=== PATIENT | female | born 1995 | race Caucasian/White ===

== ENCOUNTER 2017-06-08 08:17 | Emergency (ER) | payer BC ==
[~2017-06-08] VITALS: Ht 167.6 cm; Wt 50.7 kg
[~2017-06-08 08:17] MED LIST: BCPILLS PO; LORA-741 PO; PROP20TA67 PO; SPIR50TA2 PO
[2017-06-08 08:20] VITALS: TEMP 36.9; Ht 167.6 cm; Wt 50.7 kg
[2017-06-08] MEDS ORDERED: CEFTRIAXONE SOD INJ 1 GM ADDVIAL IV STA (08:43)
[2017-06-08] MEDS ORDERED: ETON1IMP2 (08:59)
[2017-06-08 09:03] LABS: BASO % 0.5 %; BASO ABS # 0.03 K/uL (0-0.2); COMPLETE YES; EOS % 1.8 %; HEMATOCRIT 40.1 % (37-47); IG% 0.2 %; LYMPH % 43.2 %; MEAN CELL VOLUME 89.5 fL (80-100); MEAN CORPUSCULAR HEMOGLOBIN 30.4 pg (25-34); MEAN CORPUSCULAR HGB CONC 33.9 g/dl (32-36); MEAN PLATELET VOLUME 9.5 fL (7.4-10.4); NEUT % 47.3 %; PLATELET COUNT 209 K/uL (130-400); RED BLOOD COUNT 4.48 M/uL (4.2-5.4); WHITE BLOOD COUNT 6.25 K/uL (4.8-10.8)
[2017-06-08 09:20] LABS: BUN/CREATININE RATIO 14.3 (10-20); CALCIUM 9.1 mg/dl (8.5-10.1); CREATININE 0.77 mg/dl (0.60-1.20); POTASSIUM 3.6 mmol/L (3.5-5.1)
[2017-06-08] MEDS ORDERED: CEPH500C PO (10:01)
[2017-06-08 10:17] VITALS: BP 115/73; PULSE 86; O2SAT 97
--- NOTE | 2017-06-08 16:08 | EMERGENCY ROOM VISIT NOTE ---
History First contact with patient: 08:34 Chief Complaint: EYE ASSESSMENT Stated Complaint: PUFFY EYE, ALLERGY History of Present Illness The patient is a 21 year old female who presents to the Emergency Room with complaints of aggressively worsening right eyelid swelling and redness. The patient reports that she woke up yesterday morning with mild swelling and minimal redness. She was seen by an eye doctor who performed an eye exam without any identifiable problems. They suggested that this was an allergic reaction, and suggested that she take Benadryl. She was also provided a prescription for hydrocortisone cream. The patient reports that when she awoke this morning, the redness and swelling were worse. She denies any pain, especially with range of motion of the eyes. The patient does not wear contacts. She has had some mild drainage from the eye. She denies any blurred vision, but now reports that the eye is swollen shut. She has had a recent mild cold with minimal cough and runny nose. She also complains of pressure in the right ear. She currently denies any pain. Review of Systems 10 system review was performed and was negative except for pertinent positives and negatives as indicated in history of present illness Past Medical/Surgical History Medical Problems: (1) Anxiety (2) Panic attacks Family History Diabetes mellitus FHx: cancer Social History Smoking Status: Never Smoker Alcohol Use: occasionally Marital Status: single Housing Status: lives with roommate Current/Historical Medications Scheduled Cephalexin Monohydrate (Keflex), 500 MG PO QID Propranolol (Inderal), 40 MG PO QAM Spironolactone (Aldactone), 50 MG PO DAILY Scheduled PRN Lorazepam (Ativan), 0.5 MG PO BID PRN for Anxiety Miscellaneous Medications Etonogestrel (Nexplanon) Physical Exam Vital Signs Date Time Temp Pulse Resp B/P (MAP) Pulse Ox O2 Delivery O2 Flow Rate FiO2 06/08/17 10:17 86 17 115/73 97 Room Air 06/08/17 08:20 36.9 71 18 113/70 99 Room Air Physical Exam CONSTITUTIONAL: Healthy and well nourished. Alert and oriented X 3 with positive affect. Patient does not appear in any acute distress. HEENT: Examination shows notable right periorbital erythema and ecchymosis. The patient is unable to open the eye. Pupils equal, round and reactive. EOMs are intact and without evidence of discomfort. Examination of the right eye does not show any significant conjunctival injection or mucopurulent drainage. Examination of the right ear does show mild bulging of the TM without air-fluid levels or erythema. Bony landmarks and light reflex are present. Minimal clear rhinorrhea is noted. LYMPHATICS: No adenopathy noted on exam. NECK: Full active range of motion without discomfort. RESPIRATORY: Clear to auscultation bilaterally with no wheezing, crackles, rhonchi or stridor. CARDIOVASCULAR: Regular rate and rhythm with no murmurs, rubs or gallops. GASTROINTESTINAL: Bowel sounds present in all quadrants. MUSCULOSKELETAL: Full range of motion of all joints without discomfort. INTEGUMENTARY: No rash or other significant dermatologic conditions noted. NEUROLOGIC: No focal neurologic deficits noted. Cranial nerves 2 through 12 grossly intact. Facial sensations are also intact. Medical Decision & Procedures Laboratory Results 06/08/17 08:50 Red Blood Count 4.48, Mean Corpuscular Volume 89.5, Mean Corpuscular Hemoglobin 30.4, Mean Corpuscular Hemoglobin Concent 33.9, Mean Platelet Volume 9.5, Neutrophils (%) (Auto) 47.3, Lymphocytes (%) (Auto) 43.2, Monocytes (%) (Auto) 7.0, Eosinophils (%) (Auto) 1.8, Basophils (%) (Auto) 0.5, Neutrophils # (Auto) 2.96, Lymphocytes # (Auto) 2.70, Monocytes # (Auto) 0.44, Eosinophils # (Auto) 0.11, Basophils # (Auto) 0.03 06/08/17 08:50 Test 06/08/17 08:50 White Blood Count 6.25 K/uL (4.8-10.8) Red Blood Count 4.48 M/uL (4.2-5.4) Hemoglobin 13.6 g/dL (12.0-16.0) Hematocrit 40.1 % (37-47) Mean Corpuscular Volume 89.5 fL (80-100) Mean Corpuscular Hemoglobin 30.4 pg (25-34) Mean Corpuscular Hemoglobin Concent 33.9 g/dl (32-36) Platelet Count 209 K/uL (130-400) Mean Platelet Volume 9.5 fL (7.4-10.4) Neutrophils (%) (Auto) 47.3 % Lymphocytes (%) (Auto) 43.2 % Monocytes (%) (Auto) 7.0 % Eosinophils (%) (Auto) 1.8 % Basophils (%) (Auto) 0.5 % Neutrophils # (Auto) 2.96 K/uL (1.4-6.5) Lymphocytes # (Auto) 2.70 K/uL (1.2-3.4) Monocytes # (Auto) 0.44 K/uL (0.11-0.59) Eosinophils # (Auto) 0.11 K/uL (0-0.5) Basophils # (Auto) 0.03 K/uL (0-0.2) RDW Standard Deviation 43.5 fL (36.4-46.3) RDW Coefficient of Variation 13.4 % (11.5-14.5) Immature Granulocyte % (Auto) 0.2 % Immature Granulocyte # (Auto) 0.01 K/uL (0.00-0.02) Erythrocyte Sedimentation Rate 2 mm/hr (0-21) Anion Gap 8.0 mmol/L (3-11) Est Creatinine Clear Calc Drug Dose 92.5 ml/min Estimated GFR () 127.9 Estimated GFR (Non- 110.4 BUN/Creatinine Ratio 14.3 (10-20) Calcium Level 9.1 mg/dl (8.5-10.1) The above labs were reviewed and were normal. Medications Administered Medications (Trade) Dose Ordered Sig/Sharan Route Start Time Stop Time Status Last Admin Dose Admin Ceftriaxone Sodium (Rocephin Inj) 1 gm NOW STAT IV 06/08/17 08:43 06/08/17 08:45 DC 06/08/17 08:56 1 GM ED Course Patient history and physical exam were performed. Nurse's notes were reviewed. Vital signs were reviewed and were normal. The patient is afebrile. The patient denies any pain, and extraocular movements are intact and without discomfort. The patient therefore does not have physical exam findings to suggest periorbital cellulitis; however, I did suggest checking some lab work and administering some IV antibiotics in case she has a preseptal cellulitis. The patient was in agreement. IV access was established and labs were drawn. The patient was administered Rocephin 1 g IV infusion. Review of labs did not show any acute findings. The case was also discussed with Dr. Watts, ED attending physician, who agrees with workup and outpatient plan of care, having the patient return for any progressively worsening symptoms. The patient was provided a prescription for Keflex. She refused any prescription analgesics. The patient was upset because of the amount of swelling, and reported that she did not feel comfortable going to class. The patient was provided a note off work today, and encouraged to follow-up with [facility] or return to the emergency department as needed for a recheck in 24-48 hours. She was instructed to return sooner with any developing blurred vision, headache , fever, significant worsening swelling, redness or pain with movement of the eye. The patient was happy with plan of care, and voiced understanding of all discharge instructions, denying any discomfort at the time of discharge. Medical Decision Medication Reconcilliation Current Medication List: was personally reviewed by me Blood Pressure Screening Patient's blood pressure: Normal blood pressure Impression Primary Impression: Preseptal cellulitis of right eye Departure Information Prescriptions Cephalexin Monohydrate (Keflex) 500 Mg Cap 500 MG PO QID for 7 Days, #28 CAP Prov: Cal Gipson PA 06/08/17 Referrals No Doctor, Assigned (PCP) Patient Instructions My [facility]
== END 2017-06-08 10:26 | disposition home or self-care (01) ==
LOC: C.EDB 08:19 → C.EDA 10:26
DX: L03.213 Periorbital cellulitis (principal); F41.9 Anxiety disorder, unspecified; Z79.899 Other long term (current) drug therapy; Z83.3 Family history of diabetes mellitus; Z80.9 Family history of malignant neoplasm, unspecified

== ENCOUNTER 2017-06-11 12:58 | Emergency (ER) | payer BC ==
[~2017-06-11] VITALS: Ht 167.6 cm; Wt 50.5 kg
[~2017-06-11 12:58] MED LIST changes: -BCPILLS PO; +CEPH500C PO; +ETON1IMP2
[2017-06-11 13:11] VITALS: TEMP 36.9; Ht 167.6 cm; Wt 50.5 kg
[2017-06-11] MEDS ORDERED: CEFTRIAXONE SOD INJ 1 GM ADDVIAL IV STA (13:28)
--- NOTE | 2017-06-11 13:34 | EMERGENCY ROOM VISIT NOTE ---
History First contact with patient: 13:20 Chief Complaint: WOUND INFECTION Stated Complaint: INFLAMMED L WRIST, SAW AT [place]UST Nursing Triage Summary: c/o left wrist pain and swelling, redness. Started last night. Has some bug bites. track line spreading up the left arm. RUST niesha border on arm today with marker. Seen here on Wednesday for right eye cellulitis. History of Present Illness The patient is a 21 year old female who presents to the Emergency Room with complaints of redness and swelling over her left hand and wrist that started last night. The patient thought that maybe it was an allergic reaction. She was seen 2 days ago in the emergency department for facial swelling. She was diagnosed with preseptal cellulitis. She was put on Keflex, which she has been taken as prescribed. The facial swelling is much improved. She denies any other rash. She has taken Keflex in the past with no reaction. The patient was cutting an apple yesterday afternoon, and accidentally cut her second and third digit. She reports that the knife was clean. She'll show notes some bug bites on her left wrist. Review of Systems 10 system review performed and negative unless noted in HPI or below Past Medical/Surgical History Medical Problems: (1) Anxiety (2) Panic attacks Family History Diabetes mellitus FHx: cancer Social History Smoking Status: Never Smoker Alcohol Use: occasionally Marital Status: single Housing Status: lives with roommate Current/Historical Medications Scheduled Cephalexin Monohydrate (Keflex), 500 MG PO QID Spironolactone (Aldactone), 50 MG PO DAILY Scheduled PRN Lorazepam (Ativan), 0.5 MG PO BID PRN for Anxiety Miscellaneous Medications Etonogestrel (Nexplanon) Physical Exam Vital Signs Date Time Temp Pulse Resp B/P (MAP) Pulse Ox O2 Delivery O2 Flow Rate FiO2 06/11/17 17:07 94 18 111/73 100 06/11/17 16:40 94 18 111/73 100 Room Air 06/11/17 14:36 91 18 104/70 100 Room Air 06/11/17 13:11 36.9 95 16 117/79 100 Room Air Physical Exam VITALS: Vitals are noted on the nurse's note and reviewed by myself. Vital signs stable. GENERAL: 21-year-old female, in no acute distress, nondiaphoretic, well- developed well-nourished. SKIN: Erythema, redness and warmth noted particular to the left hand and wrist. There is erythematous streaking on the volar aspect of the left forearm to the antecubital area. 2 small, superficial, well-healing lacerations noted to the second and third digit of the left hand. No purulent drainage noted.. HEAD: Normocephalic atraumatic. MUSCULOSKELETAL: Strength 5/5 throughout. NEURO: Patient was alert and oriented to person place and time. Normal sensation to touch. No focal neurological deficits. Medical Decision & Procedures Laboratory Results 06/11/17 13:35 Red Blood Count 4.77, Mean Corpuscular Volume 89.5, Mean Corpuscular Hemoglobin 29.8, Mean Corpuscular Hemoglobin Concent 33.3, Mean Platelet Volume 9.6, Neutrophils (%) (Auto) 66.5, Lymphocytes (%) (Auto) 24.6, Monocytes (%) (Auto) 7.8, Eosinophils (%) (Auto) 0.9, Basophils (%) (Auto) 0.1, Neutrophils # (Auto) 4.66, Lymphocytes # (Auto) 1.73, Monocytes # (Auto) 0.55, Eosinophils # (Auto) 0.06, Basophils # (Auto) 0.01 06/11/17 13:35 Test 06/11/17 13:35 06/11/17 13:54 White Blood Count 7.02 K/uL (4.8-10.8) Red Blood Count 4.77 M/uL (4.2-5.4) Hemoglobin 14.2 g/dL (12.0-16.0) Hematocrit 42.7 % (37-47) Mean Corpuscular Volume 89.5 fL (80-100) Mean Corpuscular Hemoglobin 29.8 pg (25-34) Mean Corpuscular Hemoglobin Concent 33.3 g/dl (32-36) Platelet Count 249 K/uL (130-400) Mean Platelet Volume 9.6 fL (7.4-10.4) Neutrophils (%) (Auto) 66.5 % Lymphocytes (%) (Auto) 24.6 % Monocytes (%) (Auto) 7.8 % Eosinophils (%) (Auto) 0.9 % Basophils (%) (Auto) 0.1 % Neutrophils # (Auto) 4.66 K/uL (1.4-6.5) Lymphocytes # (Auto) 1.73 K/uL (1.2-3.4) Monocytes # (Auto) 0.55 K/uL (0.11-0.59) Eosinophils # (Auto) 0.06 K/uL (0-0.5) Basophils # (Auto) 0.01 K/uL (0-0.2) RDW Standard Deviation 43.4 fL (36.4-46.3) RDW Coefficient of Variation 13.3 % (11.5-14.5) Immature Granulocyte % (Auto) 0.1 % Immature Granulocyte # (Auto) 0.01 K/uL (0.00-0.02) Anion Gap 6.0 mmol/L (3-11) Est Creatinine Clear Calc Drug Dose 101.4 ml/min Estimated GFR () 143.5 Estimated GFR (Non- 123.9 BUN/Creatinine Ratio 14.1 (10-20) Calcium Level 9.3 mg/dl (8.5-10.1) Total Bilirubin 0.4 mg/dl (0.2-1) Aspartate Amino Transf (AST/SGOT) 32 U/L (15-37) Alanine Aminotransferase (ALT/SGPT) 43 U/L (12-78) Alkaline Phosphatase 78 U/L (45-117) Total Protein 8.2 gm/dl (6.4-8.2) Albumin 4.6 gm/dl (3.4-5.0) Globulin 3.6 gm/dl (2.5-4.0) Albumin/Globulin Ratio 1.3 (0.9-2) Lyme Disease IgG Antibody NEG (NEG) Lyme Disease IgM Antibody NEG (NEG) Urine Test NEG (NEG) Medications Administered Medications (Trade) Dose Ordered Sig/Sharan Route Start Time Stop Time Status Last Admin Dose Admin Ceftriaxone Sodium (Rocephin Inj) 1 gm NOW STAT IV 06/11/17 13:28 06/11/17 13:30 DC 06/11/17 13:55 1 GM ED Course Patient was seen and examined Vital signs including blood pressure were reviewed medications list was verified with patient Labs were obtained, and a saline lock was established The patient was given 1 dose of ceftriaxone 1 g IV. She was instructed to take one dose of her Bactrim, which was prescribed by [facility]. Upon reevaluation, the patient was resting comfortably. We discussed treatment options. She voiced understanding. The erythema was marked. I reviewed discharge instructions the patient. They voiced understanding and had no further questions. Medical Decision Differential diagnosis: Cellulitis, wound infection, lymphangitis, bacteremia This patient is a 21-year-old female that presents to the emergency department with left hand and wrist swelling, redness and warmth. It does appear that she has a cellulitis with possible lymphangitis with the red streaking up her arm. There are 2 small cuts to her second and third digits. They do not however appear to be infected. The patient is currently taking Keflex for her preseptal cellulitis. She was instructed to continue this. She was prescribed Bactrim by [facility]. I believe this is a good choice for MRSA coverage. She is nontoxic in appearance. She is afebrile. There is no leukocytosis. I believe she is stable to be discharged home with close follow- up.. She was instructed to return to the emergency department in 48 hours for a recheck. Given the weekend/upcoming holiday, [facility] is closed. She was also highly advised to return to the emergency department sooner with worsening symptoms. This chart was completed in part utilizing [employer] Speech Voice Recognition software. Attempts were made to minimize the grammatical errors, random word insertions, pronoun errors and incomplete sentences. Any formal questions or concerns about the content, text or information contained within the body of this dictation should be directly addressed to the provider for clarification. Medication Reconcilliation Current Medication List: was personally reviewed by me Blood Pressure Screening Patient's blood pressure: Normal blood pressure Impression Primary Impression: Cellulitis Departure Information Dispostion Home / Self-Care Condition GOOD Referrals Alissa Saha PA (PCP) Patient Instructions My [facility] Additional Instructions You were evaluated in the emergency department for cellulitis of your left hand. This is an infection of the skin. Please continue antibiotics as prescribed. Please continue both the Keflex and Bactrim. Also, continue the probiotic Please return to the emergency department 48 hours for a recheck of the wound. Please return sooner for any worsening symptoms such as increased redness, swelling, pain or fever.
[2017-06-11 14:14] LABS: BASO % 0.1 %; BASO ABS # 0.01 K/uL (0-0.2); COMPLETE YES; EOS % 0.9 %; HEMATOCRIT 42.7 % (37-47); IG% 0.1 %; LYMPH % 24.6 %; LYMPH ABS # 1.73 K/uL (1.2-3.4); MEAN CELL VOLUME 89.5 fL (80-100); MEAN CORPUSCULAR HEMOGLOBIN 29.8 pg (25-34); MEAN CORPUSCULAR HGB CONC 33.3 g/dl (32-36); MEAN PLATELET VOLUME 9.6 fL (7.4-10.4); MONO % 7.8 %; NEUT % 66.5 %; PLATELET COUNT 249 K/uL (130-400); RED BLOOD COUNT 4.77 M/uL (4.2-5.4); WHITE BLOOD COUNT 7.02 K/uL (4.8-10.8)
[2017-06-11 14:31] LABS: BUN/CREATININE RATIO 14.1 (10-20); CALCIUM 9.3 mg/dl (8.5-10.1); CREATININE 0.7 mg/dl (0.60-1.20); POTASSIUM 4.4 mmol/L (3.5-5.1)
[2017-06-11 14:34] LABS: ALB/GLOB RATIO 1.3 (0.9-2)
[2017-06-11 14:42] LABS: PREG INTERNAL NEGATIVE QC NEG CLEAR BACKGROUND; PREG INTERNAL POSITIVE QC POS CONTROL LINE
[2017-06-11 15:24] LABS: LYME DISEASE AB IGG NEG (NEG); LYME DISEASE AB IGM NEG (NEG)
[2017-06-11 17:07] VITALS: BP 111/73; PULSE 94; O2SAT 100
== END 2017-06-11 17:07 | disposition home or self-care (01) ==
LOC: C.EDB 13:00 → C.EDC 17:07
DX: L03.114 Cellulitis of left upper limb (principal); S61.211A Laceration without foreign body of left index finger without damage to nail, initial encounter; S61.213A Laceration without foreign body of left middle finger without damage to nail, initial encounter; L03.213 Periorbital cellulitis; W26.0XXA Contact with knife, initial encounter; Y93.G1 Activity, food preparation and clean up; F41.0 Panic disorder [episodic paroxysmal anxiety]; Z83.3 Family history of diabetes mellitus; Z80.9 Family history of malignant neoplasm, unspecified; Z79.899 Other long term (current) drug therapy

== ENCOUNTER 2017-06-13 07:09 | Emergency (ER) | payer BC ==
[~2017-06-13] VITALS: Ht 167.6 cm; Wt 49.4 kg
[2017-06-13 07:16] VITALS: BP 91/69; PULSE 86; TEMP 36.8; O2SAT 99; Ht 167.6 cm; Wt 49.4 kg
--- NOTE | 2017-06-13 16:16 | EMERGENCY ROOM VISIT NOTE ---
ED Visit Note First contact with patient: 07:24 CHIEF COMPLAINT: Infection of the left wrist and forearm HISTORY OF PRESENT ILLNESS: This 21-year-old white female patient presents for reevaluation of her left wrist and forearm. Here previously for cellulitis and lymphangitis. She did receive IV antibiotics. Patient states that the redness has improved significantly. There is no longer any streaking. She only has a small area on the dorsum of her wrist. Her insect bites continued to be pruritic. The patient denies fever, chills, nausea, or loss of appetite. She denies any pain with movement. No other complaints at this point. REVIEW OF SYSTEMS: Unchanged from previous visit PMH: Significant for anxiety and panic attacks. Also history of asthma and bronchitis. Previous surgeries: None. Allergies: Amoxicillin, Augmentin. Current medications: Bactrim and Keflex. Family history: Unremarkable. Parents are living. SOCIAL HISTORY: Patient lives with a roommate. [employer] student. Employed. No tobacco use, occasional EtOH use. PHYSICAL EXAM: Vital Signs: Afebrile. Reviewed Nurse's notes. Gen.: Well- developed, well-nourished, young white female, in no acute distress. Sitting on a bed. Alert and oriented. Skin: The left arm has a minor area of redness over the base of the thumb and radial wrist. It is approximately 4 cm in diameter. Previous line of demarcation on the hand and forearm is noted. Redness has significantly reduced and/or resolved. There is no lymphangitic streaking. She has full range of motion of her elbow, wrist, and digits. Strength is 5/5 for resisted flexion, extension, and abduction of the digits. This does not increase any pain. Neurologic: Gross sensation is intact across the left arm and hand by soft touch. Peripheral pulses are 2+. DIAGNOSIS: Cellulitis of the left wrist, resolving DISCHARGE INSTRUCTIONS: Patient was educated regarding today's findings. Conservative care measures were discussed. Finish her Bactrim and Keflex. Warm moist compresses to the area may also speed her healing. Motrin or Advil every 6 hours and also improve her discomfort. In regard to the itching, she may use a topical Benadryl cream or other anti-itch cream. Return to the emergency department or follow-up with her PCP for any worsening symptoms. Problem List Medical Problems: (1) Anxiety Status: Chronic (2) Panic attacks Status: Chronic Current/Historical Medications Scheduled Cephalexin Monohydrate (Keflex), 500 MG PO QID Spironolactone (Aldactone), 50 MG PO DAILY Scheduled PRN Lorazepam (Ativan), 0.5 MG PO BID PRN for Anxiety Miscellaneous Medications Etonogestrel (Nexplanon) Allergies Coded Allergies: Amoxicillin (Unverified Allergy, Unknown, ., 06/13/17) Clavulanic Acid (Unverified Allergy, Unknown, ., 06/13/17) Penicillins (Unverified Allergy, Unknown, ., 06/13/17) Vital Signs Date Time Temp Pulse Resp B/P (MAP) Pulse Ox O2 Delivery O2 Flow Rate FiO2 06/13/17 07:16 36.8 86 18 91/69 99 Room Air Departure Information Impression Primary Impression: Cellulitis of wrist Dispostion Home / Self-Care Forms BENADRYL USE, WORK / SCHOOL INSTRUCTIONS, HOME CARE DOCUMENTATION FORM, MOTRIN USE, IMPORTANT VISIT INFORMATION Patient Instructions My [facility] Additional Instructions Finish your antibiotics Apply warm moist compresses to the area to speed healing Topical Benadryl or other anti-itch cream may be of benefit Advil/Motrin every 6 hours may also improve your discomfort Follow-up with your PCP or return to the ED for any worsening of redness/ streaking
== END 2017-06-13 07:36 | disposition home or self-care (01) ==
LOC: C.EDB 07:10 → C.EDA 07:36
DX: L03.114 Cellulitis of left upper limb (principal); F41.9 Anxiety disorder, unspecified